=== PATIENT | female | born 1945 | race Caucasian/White ===

== ENCOUNTER → 2021-08-26 | Outpatient (CLI) | payer OTHER ==
[~2021-08-26] MED LIST: ZOFRAN ODT 4 MG4 MG PO
== END ==
LOC: KOH-I 10:09
DX: R06.09 Other forms of dyspnea (principal)
CPT/HCPCS: 71046

== ENCOUNTER 2021-09-15 17:56 | Emergency (ER) | payer OTHER ==
[2021-09-15 21:20] LABS: HEMOGLOBIN 14.9 gm/dl (12.3-15.3); RED BLOOD COUNT 4.58 M/UL (4.00-5.10); WHITE BLOOD COUNT 9.2 K/UL (4.5-11.0)
[2021-09-15 21:35] LABS: BUN/CREATININE RATIO 20 (0-10)
[2021-09-15] MEDS ORDERED: PREDNISONE 50 M50 MG PO (23:21)
[2021-09-15] MEDS ORDERED: PROVENTIL HFA6.7 GM INH (23:21)
[2021-09-15] MEDS ORDERED: BENZONATATE100 MG PO (23:21)
== END 2021-09-16 00:04 | disposition home or self-care (01) ==
LOC: ER1 17:56
PROVIDERS: Physician Assistant
DX: U07.1 COVID-19 (principal); I10 Essential (primary) hypertension; R06.02 Shortness of breath
CPT/HCPCS: 0240U; 71045; 80053; 82550; 82553; 83874; 84484; 85025; 87081; 87880; 93005; 99284; Q9967

== ENCOUNTER → 2021-10-14 | Outpatient (CLI) | payer OTHER ==
[~2021-10-14] MED LIST changes: +BENZONATATE100 MG PO; +PREDNISONE 50 M50 MG PO; +PROVENTIL HFA6.7 GM INH
== END ==
LOC: US 10-11 09:30
DX: R74.8 Abnormal levels of other serum enzymes (principal)
CPT/HCPCS: 76705

== ENCOUNTER → 2021-10-21 | Outpatient (CLI) | payer OTHER | LOC: HEART 5 08:21 | DX: I20.8 Other forms of angina pectoris (principal); R53.83 Other fatigue; R06.02 Shortness of breath | CPT/HCPCS: 78452; A9502; J2785 ==